=== PATIENT | male | born 1960 | race Caucasian/White ===

== ENCOUNTER 2017-03-15 20:33 | Emergency (ER) | payer MEDICAID ==
[~2017-03-15] VITALS: Ht 175.3 cm; Wt 81.9 kg
[2017-03-15 20:36] VITALS: BP 145/93
== END 2017-03-15 22:22 | disposition home or self-care (01) ==
LOC: ED 22:16
DX: M79.642 Pain in left hand (principal); M79.641 Pain in right hand; L25.9 Unspecified contact dermatitis, unspecified cause
CPT/HCPCS: 36415; 84550; 99285

== ENCOUNTER 2017-06-20 15:02 | Emergency (ER) | payer OTHER, MEDICAID ==
[~2017-06-20] VITALS: Ht 175.3 cm; Wt 83.0 kg
[2017-06-20 15:05] VITALS: BP 144/78
[2017-06-20] MEDS ORDERED: KETOROLAC 30 MG/1 ML IM ONE (16:00)
[2017-06-20] MEDS ORDERED: KETOROLAC 30 MG/1 ML ONE (16:00)
[2017-06-20] MEDS ORDERED: METHOCARBAMOL 750 MG TABLET ONE (16:00)
[2017-06-20] MEDS ORDERED: METHOCARBAMOL 750 MG TABLET PO ONE (16:00)
== END 2017-06-20 17:23 ==
LOC: ED 17:00
DX: S29.012A Strain of muscle and tendon of back wall of thorax, initial encounter (principal); S29.011A Strain of muscle and tendon of front wall of thorax, initial encounter; Z87.891 Personal history of nicotine dependence; V13.4XXA Pedal cycle driver injured in collision with car, pick-up truck or van in traffic accident, initial encounter; Y93.89 Activity, other specified; Y92.89 Other specified places as the place of occurrence of the external cause; Y99.9 Unspecified external cause status
CPT/HCPCS: 71101; 73030; 96372; 99284; J1885